=== PATIENT | male | born 2000 | race Caucasian/White ===

== ENCOUNTER 2023-04-29 18:07 | Emergency (ER) | payer OTHER, SELFPAY ==
[2023-04-29 18:13] VITALS: BP 126/60; PULSE 70; RESP 15; TEMP 36.7; O2SAT 97; BMI 25.7
--- NOTE | 2023-04-29 18:37 | ED.GENADUL1 ---
HPI - General Adult General Chief complaint: Headache Stated complaint: Headache Time Seen by Provider: 04/29/23 18:22 Source: patient Mode of arrival: walk-in Limitations: no limitations History of Present Illness HPI narrative: Patient is a 22-year-old male who presents to the emergency department to be evaluated for flulike illness over the last 2 days. His significant other is being evaluated separately for the same. Patient reports headache, generalized abdominal cramping, soft stools and nausea without vomiting. He has had minimal coughing and congestion. No objective fevers. No recent travel or antibiotics. He states they had a family member test positive for influenza and they were all exposed and have become ill. Last dose of Motrin or Tylenol was 6 hours ago. Related Data Previous Rx's ?Medication ?Instructions ?Recorded ketorolac 10 mg tablet 10 mg PO TID PRN pain #10 tabs 04/29/23 ondansetron 4 mg disintegrating 4 mg PO Q6H PRN nausea and 04/29/23 tablet vomiting #12 tabs Allergies Allergy/AdvReac Type Severity Reaction Status Date / Time No Known Drug Allergies Allergy Verified 04/29/23 18:13 Review of Systems ROS Constitutional Denies: fever or chills Ears, nose, mouth, and throat Reports: nasal congestion; Denies: throat pain Cardiovascular Denies: chest pain Respiratory Reports: cough; Denies: shortness of breath Gastrointestinal Reports: abdominal pain, nausea and diarrhea; Denies: vomiting Musculoskeletal Denies: back pain Integumentary/Breast Denies: rash Neurological Reports: headache Exam Narrative Exam Narrative: Gen.: Awake, alert, in no distress Head: Normocephalic, atraumatic ENT: Moist mucous membranes, Bilateral TMs clear, no pharyngeal erythema Respiratory: No respiratory distress, lungs clear bilaterally Cardio: Regular rate and rhythm Gastrointestinal: Abdomen is soft, nondistended and nontender to palpation Extremities: Moves extremities equally Psych: Normal mood and affect Neuro: No focal neuro deficit Skin: Warm, dry, intact Constitutional Vital Signs, click to edit/add: Last Vital Signs Temp 98.1 F 04/29/23 18:13 Pulse 70 04/29/23 18:13 Resp 15 04/29/23 18:13 BP 126/60 04/29/23 18:13 Pulse Ox 97 04/29/23 18:13 O2 Del Method Room Air 04/29/23 18:13 Course Vital Signs Vital signs: Vital Signs Temperature 98.1 F 04/29/23 18:13 Pulse Rate 70 04/29/23 18:13 Respiratory Rate 15 04/29/23 18:13 Blood Pressure 126/60 04/29/23 18:13 Pulse Oximetry 97 04/29/23 18:13 Oxygen Delivery Method Room Air 04/29/23 18:13 Temperature 98.1 F 04/29/23 18:13 Pulse Rate 70 04/29/23 18:13 Respiratory Rate 15 04/29/23 18:13 Blood Pressure 126/60 04/29/23 18:13 Pulse Oximetry 97 04/29/23 18:13 Oxygen Delivery Method Room Air 04/29/23 18:13 Medical Decision Making MDM Narrative Medical decision making narrative: And is negative for COVID and influenza, treated with medication for symptoms for home. Follow-up with PCP and return to the ER if symptoms change or worsen. He has a benign exam, stable vital signs in the ER. Medical Records Medical records reviewed: Yes I reviewed the patient's medical records Lab Data Lab results reviewed: Yes I reviewed the patient's lab results Labs: Lab Results 04/29/23 Range/Units 18:43 Influenza Type A Ag Negative Influenza Type B Ag Negative SARS-CoV-2 Ag (CV2AG) Negative (NEGATIVE) Discharge Plan Discharge Stand Alone Forms: Portal Instructions Chief Complaint: Headache Clinical Impression: Flu-like symptoms Patient Disposition: Home, Self-Care Time of Disposition Decision: 19:43 Condition: Good Prescriptions / Home Meds: New ketorolac 10 mg tablet 10 mg PO TID PRN (Reason: pain) Qty: 10 0RF ondansetron 4 mg tablet,disintegrating 4 mg PO Q6H PRN (Reason: nausea and vomiting) Qty: 12 0RF Print Language: Grenadian Instructions: Viral Syndrome (ED) Referrals: Physician,Non-Staff, MD [Primary Care Provider] - 1 week
[2023-04-29] MEDS: ONDANSETRON 4 MG RAPDIS TABLET SL (18:47)
[2023-04-29] MEDS: KETOROLAC TROMETHAMINE 10 MG TABLET PO (18:47)
[2023-04-29 19:42] LABS: Influenza Virus A Antigen Negative; Influenza Virus B Antigen Negative; Internal Control Within Normal Limits; SARS-CoV-2 Ag NEGATIVE (NEGATIVE)
[2023-04-29 19:52] VITALS: BP 110/64; PULSE 69; RESP 18; O2SAT 99
== END 2023-04-29 19:52 | disposition home or self-care (01) ==
PROVIDERS: Physician Assistant; Emergency Provider Emergency Medicine
DX: R51.9 Headache, unspecified (principal); R10.9 Unspecified abdominal pain; R11.0 Nausea; Z20.822 Contact with and (suspected) exposure to COVID-19
CPT/HCPCS: 87804; 87811; 99284